=== PATIENT | male | born 1990 | race Caucasian/White ===

== ENCOUNTER 2020-02-20 17:00 | Inpatient (IN) | payer MEDICAID, OTHER ==
[~2020-02-20] VITALS: Ht 167.6 cm; Wt 66.2 kg
[2020-02-20] MEDS ORDERED: NALOXONE HCL 0.4 MG/ML VIAL ONE (17:09)
[2020-02-20] MEDS ORDERED: SODIUM CHLORIDE 0.9% 1,000 ML IVB ONE (17:13)
[2020-02-20] MEDS ORDERED: NALOXONE HCL 0.4 MG/ML VIAL IV ONE (17:15)
[2020-02-20 17:44] LABS: Basophils # (auto) 0 10 ^3/uL (0-0.2); Basophils % (auto) 0.6 % (0.0-2.0); Eosinophils # (auto) 0.1 10 ^3/uL (0-0.8); Eosinophils % (auto) 1.7 % (0.0-7.0); Hematocrit 48.2 % (41.0-53.0); Hemoglobin 16.4 g/dL (13.5-17.5); Lymphocytes # (auto) 1.6 10 ^3/uL (0.4-5.4); Lymphocytes % (auto) 24.4 % (10.0-50.0); Mean Corpuscular Hemoglobin 30.3 pg (28.0-32.0); Mean Corpuscular Volume 89.1 fL (80.0-100.0); Monocytes # (auto) 0.6 10 ^3/uL (0-1.3); Neutrophils # (auto) 4.2 10 ^3/uL (1.6-8.6); Neutrophils % (auto) 64.3 % (37.0-80.0); Nucleated Red Blood Cells % 0.2 %; Platelet Count (auto) 229 10^3/uL (140-450); Red Blood Cells 5.41 10^6/uL (4.5-5.90); Red Cell Distribution Width 13.5 % (11.8-14.3); White Blood Cell 6.6 10^3/uL (4.4-10.8)
[2020-02-20] MEDS ORDERED: levoFLOXacin 500MG 100 ML IV ONE (18:00)
[2020-02-20] MEDS ORDERED: cefTRIAXone 1GM/50ML D5W 50 ML IV ONE (18:00)
[2020-02-20 18:06] LABS: Anion Gap 5 (5-15); BUN/Creatinine Ratio 10.3; Blood Alcohol < 3.0 mg/dL (0-5); Blood Urea Nitrogen 9 mg/dL (7-18); Calcium 9.1 mg/dL (8.5-10.1); Carbon Dioxide 30 mmol/L (21-32); Chloride 106 mmol/L (98-107); GFR African American 134 mL/min; GFR Non-African American 111 mL/min; Glucose 70 mg/dL (74-106); Magnesium 2.5 mg/dL (1.6-2.6); Salicylate 1.9 mg/dL (2.8-20.0); Sodium 141 mmol/L (136-145)
[2020-02-20 18:09] LABS: Alanine Aminotransferase 46 U/L (16-61); Alkaline Phosphatase 109 U/L (45-117); Aspartate Aminotransferase 12 U/L (15-37); Bilirubin, Total 0.4 mg/dL (0.2-1.0); Total Protein 7.7 g/dL (6.4-8.2)
[2020-02-20 18:10] LABS: Acetaminophen < 2.0 ug/mL (10-30)
[2020-02-20 18:33] LABS: Urine Amorphous Crystal FEW /hpf (None Seen); Urine Bacteria NONE SEEN /hpf (None Seen); Urine Blood Negative /uL (Negative); Urine Specific Gravity 1.019 (1.001-1.035); Urine WBC 1 /hpf (0 - 3)
[2020-02-20 18:36] LABS: Lactic Acid w/Reflex 2.3 mmol/L (0.4-2.0)
[2020-02-20 18:42] LABS: Amphetamine Screen, Urine NEGATIVE (NEGATIVE); Barbiturate Scree,Urine NEGATIVE (NEGATIVE); Benzodiazephine Screen, Urine NEGATIVE (NEGATIVE); Cannabinoid Screen, Urine NEGATIVE (NEGATIVE); Cocaine Screen, Urine NEGATIVE (NEGATIVE); Opiate Scree,Urine NEGATIVE (NEGATIVE); Phencyclidine Screen, Urine NEGATIVE (NEGATIVE)
[2020-02-20] MEDS ORDERED: NALOXONE HCL 1MG/ML 2ML SYRINGE IV ONE ×2 (19:30→19:45)
[2020-02-20] MEDS ORDERED: MORPHINE SULF INJ 2 MG/ML SYRINGE 1ML IV PRN (19:45)
[2020-02-20] MEDS ORDERED: NITROGLYCERIN 0.4 MG SL TAB SL PRN (19:45)
[2020-02-20] MEDS: SODIUM CHLORIDE 0.9% 1,000 ML IV SCH (19:53)
[2020-02-20 22:54] VITALS: BP 118/74
[2020-02-21 05:00] VITALS: BP 129/74
[2020-02-21] MEDS: SODIUM CHLORIDE 0.9% 1,000 ML IV SCH ×2 (05:52→15:45)
[2020-02-21 08:10] VITALS: BP 109/75
[2020-02-21 08:36] VITALS: BP 109/75
[2020-02-21 13:42] VITALS: BP 99/55
[2020-02-21 17:07] VITALS: BP 103/65
[2020-02-21 22:00] VITALS: BP 101/52
[2020-02-22] VITALS (8 sets, daily range): BP systolic 96–119; BP diastolic 52–73
[2020-02-22] MEDS: SODIUM CHLORIDE 0.9% 1,000 ML IV SCH ×2 (05:12→16:43)
[2020-02-22 06:54] LABS: Basophils # (auto) 0 10 ^3/uL (0-0.2); Basophils % (auto) 0.8 % (0.0-2.0); Eosinophils # (auto) 0.1 10 ^3/uL (0-0.8); Eosinophils % (auto) 1.7 % (0.0-7.0); Hematocrit 41.9 % (41.0-53.0); Hemoglobin 14.6 g/dL (13.5-17.5); Lymphocytes # (auto) 1.3 10 ^3/uL (0.4-5.4); Lymphocytes % (auto) 24.9 % (10.0-50.0); Mean Corpuscular Hemoglobin 30.7 pg (28.0-32.0); Mean Corpuscular Hgb Conc. 34.9 g/dL (32.0-36.0); Mean Corpuscular Volume 87.8 fL (80.0-100.0); Monocytes # (auto) 0.3 10 ^3/uL (0-1.3); Monocytes % (auto) 5.4 % (0.0-12.0); Neutrophils # (auto) 3.4 10 ^3/uL (1.6-8.6); Neutrophils % (auto) 67.2 % (37.0-80.0); Nucleated Red Blood Cells % 0.1 %; Platelet Count (auto) 177 10^3/uL (140-450); Red Blood Cells 4.78 10^6/uL (4.5-5.90); Red Cell Distribution Width 13.4 % (11.8-14.3); White Blood Cell 5.1 10^3/uL (4.4-10.8)
[2020-02-22 07:24] LABS: Albumin 3.2 g/dL (3.4-5.0); Calcium 8.4 mg/dL (8.5-10.1); Potassium 3.8 mmol/L (3.5-5.1)
[2020-02-22 07:27] LABS: BUN/Creatinine Ratio 14.7; Bilirubin, Total 0.6 mg/dL (0.2-1.0); Total Protein 6.3 g/dL (6.4-8.2)
[2020-02-23] MEDS: SODIUM CHLORIDE 0.9% 1,000 ML IV SCH ×2 (05:07→07:45)
[2020-02-23 05:33] VITALS: BP 102/58
[2020-02-23 06:26] LABS: Potassium 3.8 mmol/L (3.5-5.1)
[2020-02-23 06:37] LABS: Albumin 2.9 g/dL (3.4-5.0); BUN/Creatinine Ratio 20.7; Bilirubin, Total 0.2 mg/dL (0.2-1.0); Calcium 7.8 mg/dL (8.5-10.1); Total Protein 5.7 g/dL (6.4-8.2)
[2020-02-23 08:00] VITALS: BP 107/59
[2020-02-23 09:00] VITALS: BP 107/59
[2020-02-23 12:52] VITALS: BP 113/74
[2020-02-23 13:24] VITALS: BP 113/74
== END 2020-02-23 14:15 | disposition home or self-care (01) | DRG 52 ==
LOC: ER 17:00 → EDBD 17:00 → TELE 17:01 → CENTRAL 22:15 → TELE-CENTR 02-21 08:21
PROVIDERS: ADMIT Nurse Practitioner Acute Care; ATTEND Internal Medicine
DX: G92 Toxic encephalopathy (principal); F11.10 Opioid abuse, uncomplicated; F17.200 Nicotine dependence, unspecified, uncomplicated; I77.6 Arteritis, unspecified; F15.10 Other stimulant abuse, uncomplicated; Z88.0 Allergy status to penicillin; Z83.3 Family history of diabetes mellitus; I73.9 Peripheral vascular disease, unspecified; F32.9 Major depressive disorder, single episode, unspecified; R00.1 Bradycardia, unspecified
CPT/HCPCS: 36415; 51702; 70450; 70551; 71045; 80053; 80307; 80320; 80329; 81001; 82962; 83605; 83735; 85025; 87040; 87205; 93005; 93306; 95819; 96365; 96368; 96375; 96376; G0378; J0696; J1956

== ENCOUNTER 2023-06-05 10:03 | Emergency (ER) | payer MEDICAID ==
[~2023-06-05] VITALS: Ht 193 cm; Wt 59.0 kg
[2023-06-05] MEDS ORDERED: SODIUM CHLORIDE 0.9% 1,000 ML IV ONE (10:15)
[2023-06-05] MEDS ORDERED: NALOXONE HCL 1MG/ML 2ML SYRINGE IV ONE (10:15)
[2023-06-05 10:28] VITALS: BP 125/90; PULSE 70; RESP 14; O2SAT 99
[2023-06-05 10:55] LABS: Basophils # (auto) 0.1 10 ^3/uL (0-0.2); Basophils % (auto) 1.1 % (0.0-2.0); Eosinophils # (auto) 0.2 10 ^3/uL (0-0.8); Hematocrit 40.5 % (41.0-53.0); Hemoglobin 13.6 g/dL (13.5-17.5); Lymphocytes # (auto) 2.3 10 ^3/uL (0.4-5.4); Lymphocytes % (auto) 36.7 % (10.0-50.0); Mean Corpuscular Hgb Conc. 33.5 g/dL (32.0-36.0); Mean Corpuscular Volume 89.6 fL (80.0-100.0); Monocytes # (auto) 0.6 10 ^3/uL (0-1.3); Monocytes % (auto) 9.1 % (0.0-12.0); Neutrophils # (auto) 3.1 10 ^3/uL (1.6-8.6); Neutrophils % (auto) 49.1 % (37.0-80.0); Nucleated Red Blood Cells % 0.1 %; Red Blood Cells 4.52 10^6/uL (4.5-5.90); Red Cell Distribution Width 14.3 % (11.8-14.3); White Blood Cell 6.2 10^3/uL (4.4-10.8)
[2023-06-05 11:17] LABS: Calcium 8.6 mg/dL (8.5-10.1); Potassium 3.3 mmol/L (3.5-5.1)
[2023-06-05 11:22] LABS: Albumin 3.9 g/dL (3.4-5.0); BUN/Creatinine Ratio 11.8 (10.0-20.0); Bilirubin, Total 0.3 mg/dL (0.2-1.0); Total Protein 7.1 g/dL (6.4-8.2)
== END 2023-06-05 14:53 | disposition left against medical advice (07) ==
LOC: EDBD 10:03 → ER 10:03
DX: R53.1 Weakness (principal); F15.10 Other stimulant abuse, uncomplicated; F14.10 Cocaine abuse, uncomplicated; R51.9 Headache, unspecified
CPT/HCPCS: 36415; 70450; 80053; 84484; 85025; 96360; 99284; J7030